=== PATIENT | male | born 2000 | race African-American/Black ===

== ENCOUNTER 2021-12-08 09:26 | Emergency (ER) | payer OTHER ==
[~2021-12-08] VITALS: Ht 167.6 cm; Wt 72.6 kg
[2021-12-08 09:38] VITALS: TEMP 97.8
[2021-12-08 10:35] VITALS: BP 131/76
== END 2021-12-08 10:35 | disposition home or self-care (01) ==
LOC: ED 09:26
DX: B01.9 Varicella without complication (principal)
CPT/HCPCS: 99281